=== PATIENT | female | born 1995 | race Asian ===

== ENCOUNTER 2018-08-06 00:32 | Emergency (ER) | payer SELFPAY ==
[2018-08-06 00:37] VITALS: BP 139/89; PULSE 88; TEMP 97.4; BMI 20.1
--- NOTE | 2018-08-06 00:53 | PDOC ---
History of Present Illness - General Chief Complaint: Psychiatric Stated Complaint: ANXIETY Time Seen by Provider: 08/06/18 00:52 - History of Present Illness Initial Comments: This 23y.o. woman with a history of mild, intermittent asthma and anxiety presents with her parents with a history of sensation that she could not breathe. She was at home just prior to presentation with her brother and sister( both of whom have influenza) when she felt anxious , then had the sensation that she could not catch her breath. She does not recall hyperventilating and denies extremity or circumoral tingling /numbness. She has not had wheezing/cough/fever. She does have mild discomfort with swallowing. She has been caring for both of her siblings with influenza and admits to not been sleeping adequately in recent days. The patient has had episodes of acute anxiety/panic in the past and states they have had similar symptoms Past History - Past Medical History Allergies/Adverse Reactions: Allergies Allergy/AdvReac Type Severity Reaction Status Date / Time No Known Allergies Allergy Unverified 07/11/14 10:13 Home Medications: Ambulatory Orders Albuterol Sulfate Inhaler - [Ventolin HFA Inhaler -] 1 - 2 inh PO QID PRN predniSONE [Deltasone -] 20 mg PO BID #6 tablet 07/11/14 Asthma: Yes COPD: No CHF: No GI Disorders: Yes (GERD) - Immunization History Immunization Up to Date: Yes - Suicide/Smoking/Psychosocial Hx Smoking History: Unknown if ever smoked Have you smoked in the past 12 months: No Number of Cigarettes Smoked Daily: 0 Information on smoking cessation initiated: No Hx Alcohol Use: No Drug/Substance Use Hx: No Review of Systems - Review of Systems Able to Perform ROS?: Yes Comments:: 12 point review of systems is negative except for what is noted in the history of present illness *Physical Exam - Vital Signs Last Vital Signs Temp Pulse Resp BP Pulse Ox 97.4 F L 88 18 139/89 100 08/06/18 00:34 08/06/18 00:34 08/06/18 00:34 08/06/18 00:34 08/06/18 00:34 - Physical Exam Comments: GENERAL: Adult female, alert and oriented times 3, initially tearful, then calm HEAD: Normal with no signs of trauma. EYES: PERRLA, EOMI, sclera anicteric, conjunctiva clear. ENT: Ears normal, nares patent, oropharynx clear without exudates. Moist mucous membranes. NECK: Normal range of motion, supple without lymphadenopathy, JVD, or masses. LUNGS: Breath sounds equal, clear to auscultation bilaterally. No wheezes, and no crackles. HEART:Regular rate and rhythm, normal S1 and S2 without murmur, rub or gallop. ABDOMEN:.normal bowel sounds No guarding,tenderness or rebound.No masses No distention. EXTREMITIES: Normal range of motion, no edema. No clubbing or cyanosis. No erythema, or tenderness. NEUROLOGICAL: Cranial nerves II through XII grossly intact. Normal speech. No focal neurological deficits. MUSCULOSKELETAL: Back non-tender to palpation, no CVA tenderness SKIN: Warm, Dry, normal turgor, no rashes or lesions noted. Moderate Sedation - Procedure Monitoring Vital Signs: Procedure Monitoring Vital Signs Temperature 97.4 F L 08/06/18 00:34 Pulse Rate 88 08/06/18 00:34 Respiratory Rate 18 08/06/18 00:34 Blood Pressure 139/89 08/06/18 00:34 O2 Sat by Pulse Oximetry (%) 100 08/06/18 00:34 Medical Decision Making - Medical Decision Making Patient felt significantly better after interview and examination. She states that she no longer has any sensation of not being able to breathe. She believes that she had a panic attack, probably secondary to the fact that she has been sleep deprived over the last few days. She states that in the past, she has not needed any antianxiety medication and in general, prefers not to take medications if possible. She states that she feels comfortable and will be able to sleep when she goes home. *DC/Admit/Observation/Transfer Diagnosis at time of Disposition: Anxiety - Discharge Dispostion Disposition: HOME Condition at time of disposition: Stable - Referrals - Patient Instructions Printed Discharge Instructions: DI for Anxiety -- Adult Additional Instructions: continue drinking plenty of fluids; eat regular meals get plenty of rest Consider taking Tamiflu prophylactic regimen as discussed Return to ER if you have severe sore throat/fever Follow-up with your doctor within the next 48 hours - Post Discharge Activity
== END 2018-08-06 01:23 | disposition home or self-care (01) ==
LOC: FER 00:32
DX: F41.9 Anxiety disorder, unspecified (principal); J45.909 Unspecified asthma, uncomplicated
CPT/HCPCS: 99282-25